=== PATIENT | male | born 1970 | race Caucasian/White ===

== ENCOUNTER 2024-06-02 13:53 | Emergency (ER) | payer MEDICAID ==
[~2024-06-02] VITALS: Ht 170.2 cm; Wt 68.0 kg
[2024-06-02 13:56] VITALS: TEMP 98.2; O2SAT 96
[2024-06-02] MEDS: HYDROCODONE/ACETAMINOPHEN 5/325MG TABLET PO STA (16:19)
[2024-06-02] MEDS: KETOROLAC 30MG/ML VIAL IM STA (16:19)
[2024-06-02] MEDS ORDERED: NAPR-681 PO (18:18)
[2024-06-02] MEDS ORDERED: CYCL5TAB PO (18:18)
[2024-06-02 18:27] VITALS: BP 195/125; PULSE 60; RESP 15; O2SAT 99
== END 2024-06-02 20:45 | disposition home or self-care (01) ==
LOC: ER 15:08
DX: M54.9 Dorsalgia, unspecified (principal); I10 Essential (primary) hypertension
CPT/HCPCS: 99283; 72110; 96372; J1885